=== PATIENT | female | born 1950 | race Caucasian/White ===

== ENCOUNTER → 2018-01-23 | Outpatient (CLI) | payer BC | END | disposition home or self-care (01) | LOC: KCIC CT 09:56 | DX: Z12.2 Encounter for screening for malignant neoplasm of respiratory organs (principal); I25.10 Atherosclerotic heart disease of native coronary artery without angina pectoris; K44.9 Diaphragmatic hernia without obstruction or gangrene; Z87.891 Personal history of nicotine dependence | CPT/HCPCS: G0297 ==

== ENCOUNTER 2018-03-25 15:43 | Inpatient (IN) | payer BC ==
[~2018-03-25] VITALS: Ht 167.6 cm; Wt 103.0 kg
[~2018-03-25 15:43] MED LIST: ASPI325T8 PO; CARV6.25 PO; CLOP75TA PO; CRESTOR20 MG PO; LISI10TA2 PO; MULT-18 PO; OMEG-33 PO
[2018-03-26] VITALS (13 sets, daily range): BP systolic 99–116; BP diastolic 46–64
[2018-03-26 13:28] LABS: BASO # 0.1 x10^3/uL (0.0-0.2); BASO % 1 % (0-3); EOS % 0 % (0-3); HEMATOCRIT 22.7 % (36.0-47.0); LYMPH # 2.6 x10^3/uL (1.0-4.8); LYMPH % 31 % (24-48); MEAN CORPUSCULAR HEMOGLOBIN 17 pg (25-35); MEAN CORPUSCULAR HGB CONC 26 g/dL (31-37); MEAN CORPUSCULAR VOLUME 64 fL (79-100); MONO # 0.8 x10^3/uL (0.0-1.1); MONO % 9 % (0-9); NEUT # 4.9 x10^3uL (1.8-7.7); NEUT % 58 % (31-73); PLATELET COUNT 318 x10^3/uL (140-400); RED BLOOD COUNT 3.56 x10^6/uL (3.50-5.40); RED CELL DISTRIBUTION WIDTH 21.7 % (11.5-14.5); WHITE BLOOD COUNT 8.4 x10^3/uL (4.0-11.0)
[2018-03-26 13:32] LABS: CALCIUM 9.2 mg/dL (8.5-10.1); CREATININE 1.6 mg/dL (0.6-1.0); POTASSIUM 3.5 mmol/L (3.5-5.1)
--- NOTE | 2018-03-26 14:00 | PDOC2 ---
GI CONSULT Reason For Consult: Anemia, schedule outpt testing HPI: HPI: 67 y/o female directly admitted by PCP w/ anemia (RN reports Hgb 6) and plans for blood transfusion. She has been feeling fatigued and SOA for a couple months. Says she saw Dr. Sevilla in the office last week - ASA was stopped and she was started on an acid-cable installer. She was scheduled to see Dr. Malcolm in clinic on 03/28 to schedule EGD and colonoscopy, then had a recheck of labs and was advised to come to the hospital w/ worsening (or at least not improved) Hgb. Denies obvious bleeding including hematemesis, hematochezia, and melena. Denies reflux/heartburn, dysphagia, n/v, abd pain, constipation, change in appetite, and weight loss. Had diarrhea (loose stool) once this morning - thinks "it was just nerves." Tells me lisinopril/HCTZ was stopped a couple months ago due to hypotension - since then has had increased swelling in legs, also abdomen feels a little "hard" and might have gained some fluid weight. No previous EGD or colonoscopy. No GB, liver, or pancreas history. Mentions hiatal hernia on recent chest CT. H/o CAD w/ stents, thinks still on Plavix but not really sure. No NSAIDs. Labs here - Hgb 6, MCV 64, RDW 21.7, BUN 14, Cr 1.6. Microcytic anemia also noted in 2013 (Hgb 10.1, MCV 76). Has PO pantoprazole and iron ordered. PMH: PMH: CAD w/ stent, presumed COPD ?pulmonary hypertension, HTN, HLD, hiatal hernia, thoracentesis, left leg fracture/surgery FH: Family History: Other (brother - cholecystectomy) Social History: Smoke: 1 pack per day ALCOHOL: none Drugs: None ROS: GEN: +fatigue HEENT: Denies blurred vision, sore throat CV: Denies chest pain RESP: +SOA GI: Per HPI : Denies hematuria, dysuria ENDO: "fluid" weight gain NEURO: Denies confusion, dizziness MSK: +weakness SKIN: Denies jaundice, pruritus Vitals: Vitals: Vital Signs Date Time Temp Pulse Resp B/P (MAP) Pulse Ox O2 Delivery O2 Flow Rate FiO2 03/26/18 10:45 98.3 94 20 116/60 (78) 94 Room Air 98.3 Labs: Labs: Laboratory Tests Test 03/26/18 13:10 White Blood Count 8.4 x10^3/uL (4.0-11.0) Red Blood Count 3.56 x10^6/uL (3.50-5.40) Hemoglobin 6.0 g/dL (12.0-15.5) Hematocrit 22.7 % (36.0-47.0) Mean Corpuscular Volume 64 fL (79-100) Mean Corpuscular Hemoglobin 17 pg (25-35) Mean Corpuscular Hemoglobin Concent 26 g/dL (31-37) Red Cell Distribution Width 21.7 % (11.5-14.5) Platelet Count 318 x10^3/uL (140-400) Neutrophils (%) (Auto) 58 % (31-73) Lymphocytes (%) (Auto) 31 % (24-48) Monocytes (%) (Auto) 9 % (0-9) Eosinophils (%) (Auto) 0 % (0-3) Basophils (%) (Auto) 1 % (0-3) Neutrophils # (Auto) 4.9 x10^3uL (1.8-7.7) Lymphocytes # (Auto) 2.6 x10^3/uL (1.0-4.8) Monocytes # (Auto) 0.8 x10^3/uL (0.0-1.1) Eosinophils # (Auto) 0.0 x10^3/uL (0.0-0.7) Basophils # (Auto) 0.1 x10^3/uL (0.0-0.2) Sodium Level 132 mmol/L (136-145) Potassium Level 3.5 mmol/L (3.5-5.1) Chloride Level 99 mmol/L (98-107) Carbon Dioxide Level 31 mmol/L (21-32) Anion Gap 2 (6-14) Blood Urea Nitrogen 14 mg/dL (7-20) Creatinine 1.6 mg/dL (0.6-1.0) Estimated GFR (Cockcroft-Gault) 32.0 Glucose Level 146 mg/dL (70-99) Calcium Level 9.2 mg/dL (8.5-10.1) Allergies: Coded Allergies: No Known Drug Intolerances (Unverified Allergy, Unknown, 01/30/14) Medications: Please see EMR. PE: GEN: NAD HEENT: Atraumatic, PERRL LUNGS: diminished anteriorly HEART: distant ABD: obese, NABS, non-tender EXTREMITY: BLE edema SKIN: No rashes, no jaundice NEURO/PSYCH: A & O 3 A/P: A/P: Microcytic anemia w/ fatigue and SOA CAD - says ASA stopped last week, not sure about Plavix Edema CRC screen - none JENNIFER? -- Transfusion planned. Will check anemia parameters. Okay to continue PPI and iron. Was scheduled to see Dr. Malcolm in the office on . Will contact our office to schedule outpt EGD and colonoscopy. KYM FLORES Mar 26, 2018 14:00
[2018-03-26 14:11] LABS: ANISOCYTOSIS MOD; HYPOCHROMIA MARKED; MICROCYTOSIS MARKED; PLT ESTIMATE ADEQUATE (ADEQUATE); POIKILOCYTOSIS SLIGHT
[2018-03-26 14:12] LABS: OVALOCYTES FEW; TEAR DROP CELLS OCC
[2018-03-26 14:13] LABS: SCHISTOCYTES OCC
[2018-03-26] MEDS: NICOTINE 14MG PATCH. TD PRN (15:44)
--- NOTE | 2018-03-26 17:00 | HP ---
ADMIT DATE: 03/26/2018 DATE OF ADMISSION: 03/26/2018. CHIEF COMPLAINT: Shortness of breath and anemia. HISTORY OF PRESENT ILLNESS: A 67-year-old white female, most recently seen in the office from increasing fatigue and exertional dyspnea. Hemoglobin at that time was 5.9 with microcytic indices. Iron was added. Aspirin was stopped. Omeprazole was added and followup hemoglobin one week later was 6.1. She has had increasing shortness of breath and decided to be admitted for transfusions. She denies melena, hematochezia, weight loss, bowel habit change or abdominal pain. The old record review from prior physician showed that her hemoglobin was 9 in 2015 and was advised to see a GI doctor, but this was never arranged. In 08/2016, her hemoglobin was 9 and then in 05/2017, it was 7.9 and no further followup until this month. PAST MEDICAL HISTORY: Surgically, she has had coronary stents in about 2009 and a leg fracture repair. MEDICATIONS: Until recently included aspirin, carvedilol, and rosuvastatin. Lisinopril /HCT was recently stopped because of mildly low blood pressure and cough and mild CKD. SOCIAL HISTORY: , lives alone, nonsmoker, nondrinker. FAMILY HISTORY: Unremarkable. REVIEW OF SYSTEMS: Negative. OBJECTIVE: ENT: Mild pallor, otherwise all unremarkable. NECK: No masses, nodes, or thyroid enlargement. LUNGS: Clear. CARDIOVASCULAR: Regular rate. Grade 2 systolic murmur, no irregular beat. ABDOMEN: Obese, soft, benign and nontender. RECTAL: Declined. EXTREMITIES: [place] skin with pallor present. Decreased pedal pulses. No edema. ASSESSMENT: 1. Severe microcytic anemia, etiology undetermined, spanning over many months. Aspirin therapy is certainly complicated. 2. History of coronary artery disease with stent placement. 3. Chronic kidney disease 3, stable. PLAN: Continue off aspirin and on omeprazole, pending GI consultation for panendoscopy. Transfusions to get her hemoglobin at least above 8. GI consultation and supportive care. SANDY CARLSON MD DR: LILIBETH/stormy JOB#: [id number] / [id number]
[2018-03-26] MEDS: CARVEDILOL 6.25 MG TABLET. PO SCH (17:53)
[2018-03-26] MEDS: buPROPion SR 150 MG TABLET.SA PO SCH (20:18)
[2018-03-27] VITALS (15 sets, daily range): BP systolic 89–124; BP diastolic 45–74
[2018-03-27 06:43] LABS: HEMATOCRIT 25.5 % (36.0-47.0); HEMOGLOBIN 7.1 g/dL (12.0-15.5)
[2018-03-27] MEDS ORDERED: FERROUS SULFATE 325 MG TABLET. PO SCH (08:00)
--- NOTE | 2018-03-27 08:01 | PDOC ---
Provider Note Provider Note [id number] SANDY CARLSON MD Mar 27, 2018 08:01
[2018-03-27] MEDS: FUROSEMIDE 40 MG TABLET. PO SCH (08:34)
[2018-03-27] MEDS: PANTOPRAZOLE 40 MG TABLET.DR. PO SCH (08:34)
[2018-03-27] MEDS: buPROPion SR 150 MG TABLET.SA PO SCH ×2 (08:34→20:35)
[2018-03-27] MEDS: CARVEDILOL 6.25 MG TABLET. PO SCH ×2 (08:35→18:19)
[2018-03-27] MEDS: POTASSIUM CHLORIDE 20 MEQ TABLET.ER. PO SCH (08:36)
--- NOTE | 2018-03-27 09:02 | PN ---
DATE: 03/27/2018 SUBJECTIVE: The patient feels better with hemoglobin up to 7.1 from the original 6. She is off aspirin and Plavix at home and has gotten 2 units, but still mildly tachycardic and symptomatic and etiology of anemia is still pending. We will give another unit of packed cells and if later today her hemoglobin is above 8, she may be discharged with panendoscopy scheduled as an outpatient. If not, we will give her another unit of cells. Etiology of the chronic blood loss is unknown and patient is aware of all the possible differentials. She is off aspirin despite coronary artery disease and stents and she understands that risk of aspirin currently is greater than the benefit. SANDY CARLSON MD DR: LILIBETH/nts JOB#: [id number] / [id number]
--- NOTE | 2018-03-27 09:23 | PDOC ---
Subjective: Subjective: Feeling better. Tolerating PO. Hopeful to leave soon. Objective: Objective: Transfused 2 units - another planned. Vital Signs: Vital Signs Date Time Temp Pulse Resp B/P (MAP) Pulse Ox O2 Delivery O2 Flow Rate FiO2 03/27/18 08:35 88 116/74 03/27/18 07:00 97.6 20 90 Room Air 97.6 Labs: Laboratory Tests Test 03/26/18 13:10 03/26/18 14:45 03/26/18 16:36 03/27/18 05:30 White Blood Count 8.4 x10^3/uL Red Blood Count 3.56 x10^6/uL Hemoglobin 6.0 g/dL 7.1 g/dL Hematocrit 22.7 % 25.5 % Mean Corpuscular Volume 64 fL Mean Corpuscular Hemoglobin 17 pg Mean Corpuscular Hemoglobin Concent 26 g/dL 28 g/dL Red Cell Distribution Width 21.7 % Platelet Count 318 x10^3/uL Neutrophils (%) (Auto) 58 % Lymphocytes (%) (Auto) 31 % Monocytes (%) (Auto) 9 % Eosinophils (%) (Auto) 0 % Basophils (%) (Auto) 1 % Neutrophils # (Auto) 4.9 x10^3uL Lymphocytes # (Auto) 2.6 x10^3/uL Monocytes # (Auto) 0.8 x10^3/uL Eosinophils # (Auto) 0.0 x10^3/uL Basophils # (Auto) 0.1 x10^3/uL Platelet Estimate Adequate Hypochromasia Marked Poikilocytosis Slight Anisocytosis Mod Microcytosis Marked Tear Drop Cells Occ Ovalocytes Few Schistocytes Occ Reticulocyte Count (auto) 1.0 % Sodium Level 132 mmol/L Potassium Level 3.5 mmol/L Chloride Level 99 mmol/L Carbon Dioxide Level 31 mmol/L Anion Gap 2 Blood Urea Nitrogen 14 mg/dL Creatinine 1.6 mg/dL Estimated GFR (Cockcroft-Gault) 32.0 Glucose Level 146 mg/dL Calcium Level 9.2 mg/dL Iron Level 9 ug/dL Total Iron Binding Capacity 525 ug/dL Iron Saturation 2 % Vitamin B12 Level 337 pg/mL HIV (1&2) Antibody Screen Nonreactive PE: GEN: NAD LUNGS: room air HEART: RRR ABD: large, non-tender NEURO/PSYCH: A & O 3 A/P: YOLANDE CAD, CKD -- Possible DC today pending hemogram results. Our office will contact re: outpt EGD and colonoscopy. Okay to continue PPI and iron. KYM FLORES Mar 27, 2018 09:23
[2018-03-27] MEDS ORDERED: POLYETHYLENE GLYCOL 3350 17 GM PACKET. PO PRN (09:30)
[2018-03-27] MEDS: NICOTINE 14MG PATCH. TD PRN (13:01)
[2018-03-27] MEDS: CYANOCOBALAMIN (VITAMIN B-12) 1,000 MCG/ML VIAL IM SCH (18:20)
[2018-03-27 18:45] LABS: HEMATOCRIT 26.6 % (36.0-47.0); HEMOGLOBIN 7.5 g/dL (12.0-15.5); RED BLOOD COUNT 3.9 x10^6/uL (3.50-5.40); RED CELL DISTRIBUTION WIDTH 24.1 % (11.5-14.5)
[2018-03-27] MEDS: FERROUS SULFATE 325 MG TABLET. PO SCH (20:35)
[2018-03-28 03:00] VITALS: BP 100/63
[2018-03-28 07:00] VITALS: BP 116/67
[2018-03-28] MEDS: FUROSEMIDE 40 MG TABLET. PO SCH (08:22)
[2018-03-28] MEDS: buPROPion SR 150 MG TABLET.SA PO SCH (08:23)
[2018-03-28] MEDS: PANTOPRAZOLE 40 MG TABLET.DR. PO SCH (08:23)
[2018-03-28] MEDS: POTASSIUM CHLORIDE 20 MEQ TABLET.ER. PO SCH (08:23)
[2018-03-28] MEDS: FERROUS SULFATE 325 MG TABLET. PO SCH (08:24)
[2018-03-28] MEDS: CYANOCOBALAMIN (VITAMIN B-12) 1,000 MCG/ML VIAL IM SCH (08:24)
[2018-03-28] MEDS: CARVEDILOL 6.25 MG TABLET. PO SCH (08:28)
--- NOTE | 2018-03-28 08:38 | DISCH ---
DISCHARGE INSTRUCTIONS Condition on Discharge Condition on Discharge: Stable Activity After Discharge Activity Instructions for Disc: Activity as tolerated, Avoid exertion Bathing Instructions: Shower-keep dressing dry Lifting Instructions after Dis: No heavy lifting, Do not lift >10 pounds Exercise Instruction after Dis: Walk 10 min, 3 x per day, Walk 30 min, 3 x per week Weight Bearing Status after Di: No restrictions Diet after Discharge Diet after Discharge: Regular Diet Texture: Regular Follow-Up Follow up with: SANDY Estevez MD Mar 28, 2018 08:38
--- NOTE | 2018-03-28 08:42 | PDOC ---
Provider Note Provider Note [id number] SANDY CARLSON MD Mar 28, 2018 08:42
--- NOTE | 2018-03-28 09:10 | DS ---
DATE OF DISCHARGE: 03/28/2018 HOSPITAL SUMMARY: A 67-year-old white female admitted with severe iron deficiency anemia of undiagnosed and felt to be due to some sort of occult gastrointestinal bleeding. She has been off aspirin and Plavix and on omeprazole for 2 weeks and her hemoglobin has remained around 6 and she was more and more symptomatic and short of breath. Hemoglobin was 6 on admission, platelets normal, MCV low at 64, iron low, TIBC high and ferritin low consistent with outpatient iron deficiency anemia. After 2 units, her hemoglobin was up to 7.1 and after the third unit it was up to 7.5 and she is feeling more comfortable at this time. She is seen by GI and outpatient panendoscopy is planned and will be done as soon as possible. FINAL DIAGNOSIS: Iron-deficiency anemia, severe and etiology undetermined. OPERATIONS, PROCEDURES, COMPLICATIONS: None. CONSULTATIONS: Dr. Cortes Holliday. DISPOSITION: She remains on oral iron and omeprazole and off aspirin and Plavix and outpatient panendoscopy will be done as soon as possible. Regular diet and will follow up with periodic hemoglobins based on the results of the endoscopy. SANDY CARLSON MD DR: LILIBETH/stormy JOB#: [id number] / [id number]
[2018-03-28 11:00] VITALS: BP 102/57
--- NOTE | 2018-03-28 11:40 | PDOC ---
Subjective: Subjective: Glad to be going home later, feeling better. Has questions about what the prep for colonoscopy will be like. Objective: Vital Signs: Vital Signs Date Time Temp Pulse Resp B/P (MAP) Pulse Ox O2 Delivery O2 Flow Rate FiO2 03/28/18 08:28 85 116/67 03/28/18 08:00 Room Air 03/28/18 07:00 97.7 20 89 97.7 Labs: Laboratory Tests Test 03/27/18 18:05 White Blood Count 8.0 x10^3/uL Red Blood Count 3.90 x10^6/uL Hemoglobin 7.5 g/dL Hematocrit 26.6 % Mean Corpuscular Volume 68 fL Mean Corpuscular Hemoglobin 19 pg Mean Corpuscular Hemoglobin Concent 28 g/dL Red Cell Distribution Width 24.1 % Platelet Count 287 x10^3/uL PE: GEN: NAD LUNGS: diminished HEART: RRR ABD: obese, soft, non-tender NEURO/PSYCH: A & O 3 A/P: YOLANDE -- DC per primary. Our office will contact re: scheduling 'scopes and prep instructions. KYM FLORES Mar 28, 2018 11:40
== END 2018-03-28 17:18 | disposition home or self-care (01) | DRG 378 ==
LOC: EDBD → 5 SOUTH 03-26 07:00
PROVIDERS: ADMIT Family Medicine; ATTEND Family Medicine
PROC: 30233N1 Transfusion of Nonautologous Red Blood Cells into Peripheral Vein, Percutaneous Approach (ICD-10-PCS; principal; 2018-03-26)
DX: K92.2 Gastrointestinal hemorrhage, unspecified (principal); E87.1 Hypo-osmolality and hyponatremia; D50.9 Iron deficiency anemia, unspecified; E78.5 Hyperlipidemia, unspecified; F17.210 Nicotine dependence, cigarettes, uncomplicated; I12.9 Hypertensive chronic kidney disease with stage 1 through stage 4 chronic kidney disease, or unspecified chronic kidney disease; I25.10 Atherosclerotic heart disease of native coronary artery without angina pectoris; I27.20 Pulmonary hypertension, unspecified; N18.3 Chronic kidney disease, stage 3 (moderate); Z95.5 Presence of coronary angioplasty implant and graft
CPT/HCPCS: 36415; 80048; 82607; 83540; 83550; 85014; 85018; 85025; 85027; 85045; 86703; 86850; 86900; 86901; 86920; 99406; J3420; P9016

== ENCOUNTER → 2018-04-12 | Day surgery (SDC) | payer BC ==
[~2018-04-12] MED LIST changes: +ASPI-630 PO; +FURO80TA3 PO; +HYDROmorphone 2 MG/ML VIAL IV PRN; +IV RINGERS,LACTATED 1000ML 1,000 ML IV SCH; +LIDOCAINE 1% PF 2 ML VIAL. ID PRN; +LIDOCAINE 2% PF 2ML VIAL. ONE; +MORPHINE SULFATE 2 MG/ML VIAL. IV PRN; +ONDANSETRON PF 4 MG/2 ML VIAL. IV PRN; +POTA10TA12 PO; +PROCHLORPERAZINE 10 MG/2 ML VIAL. IV PRN; +PROPOFOL 20 ML IV ONE; +fentaNYL PF VIAL 100 MCG/2 ML VIAL IV PRN
[2018-04-12 10:17] VITALS: BP 96/53
== END | disposition home or self-care (01) ==
LOC: SURG 07:59
PROVIDERS: ATTEND Internal Medicine Gastroenterology
DX: K57.30 Diverticulosis of large intestine without perforation or abscess without bleeding (principal); K64.0 First degree hemorrhoids; D50.0 Iron deficiency anemia secondary to blood loss (chronic); K31.7 Polyp of stomach and duodenum; K31.811 Angiodysplasia of stomach and duodenum with bleeding; I25.10 Atherosclerotic heart disease of native coronary artery without angina pectoris; I27.20 Pulmonary hypertension, unspecified; F17.210 Nicotine dependence, cigarettes, uncomplicated; I10 Essential (primary) hypertension; E78.5 Hyperlipidemia, unspecified; K44.9 Diaphragmatic hernia without obstruction or gangrene; Z90.49 Acquired absence of other specified parts of digestive tract; Z98.890 Other specified postprocedural states
CPT/HCPCS: 43235; 45378; J2001; J2704